=== PATIENT | male | born 1990 | race African-American/Black ===

== ENCOUNTER 2022-06-23 12:11 | Emergency (ER) | payer MEDICAID ==
[~2022-06-23] VITALS: Ht 175.3 cm; Wt 75.0 kg
[2022-06-23] MEDS ORDERED: HYDROCODONE/ACETAMINOPHEN 5/325MG TABLET PO ONE (12:30)
[2022-06-23] MEDS ORDERED: KETOROLAC 60MG/2ML VIAL IM ONE (12:30)
[2022-06-23 12:50] VITALS: BP 124/76
[2022-06-23] MEDS ORDERED: CYCLOBENZAPRINE 10MG TABLET PO ONE (14:15)
[2022-06-23] MEDS ORDERED: METH-653 MT (15:16)
[2022-06-23] MEDS ORDERED: IBUP-2028 MT (15:16)
== END 2022-06-23 15:31 | disposition home or self-care (01) ==
LOC: ER 12:11
DX: M54.9 Dorsalgia, unspecified (principal); W01.0XXA Fall on same level from slipping, tripping and stumbling without subsequent striking against object, initial encounter; Y93.89 Activity, other specified; Y92.9 Unspecified place or not applicable
CPT/HCPCS: 71045; 72100; 96372; 99284; J1885